=== PATIENT | female | born 1990 | race Caucasian/White ===

== ENCOUNTER 2021-03-03 17:47 | Emergency (ER) | payer OTHER ==
[~2021-03-03] VITALS: Ht 160 cm; Wt 61.2 kg
[2021-03-03 17:56] VITALS: BP 117/77
[2021-03-03] MEDS ORDERED: CIPR10DR LEFT EAR (18:14)
[2021-03-03] MEDS ORDERED: HYDROCODONE/APAP 5/325MG TABLET ONE (18:16)
[2021-03-03] MEDS ORDERED: IBUP-1957 PO (18:18)
--- NOTE | 2021-03-03 18:25 | NUR ---
Patient discharged to home in stable condition. Written and verbal after care instructions given. Patient verbalizes understanding of instruction.
[2021-03-03] MEDS ORDERED: HYDROCODONE/APAP 5/325MG TABLET PO ONE (18:30)
== END 2021-03-03 18:25 | disposition home or self-care (01) ==
LOC: ER 17:59
DX: H60.92 Unspecified otitis externa, left ear (principal); F32.9 Major depressive disorder, single episode, unspecified; Z79.899 Other long term (current) drug therapy

== ENCOUNTER 2021-11-18 09:17 | Emergency (ER) | payer OTHER ==
[~2021-11-18] VITALS: Ht 157.5 cm; Wt 62.1 kg
[~2021-11-18 09:17] MED LIST: CIPR10DR LEFT EAR; IBUP-1957 PO
--- NOTE | 2021-11-18 09:17 | NUR ---
PT [address] C/O DEPRESSION REQUESTING VOLUNTARY PSYCH ADMISSION TO [facility]. PT IS AAOX4, NOT IN RESPIRATORY DISTRESS, V/S STABLE, KEPT RESTED AND COMFORTABLE. WILL CONTINUE TO MONITOR.
--- NOTE | 2021-11-18 09:22 | NUR ---
SEEN AND EXAMINED BY .
--- NOTE | 2021-11-18 09:25 | NUR ---
URINE SPECIMEN COLLECTED AND SENT TO LAB.
--- NOTE | 2021-11-18 09:36 | NUR ---
COVID SWAB DONE AND SENT TO LAB
[2021-11-18 09:51] LABS: BASOPHILS # (AUTO) 0.1 K/uL (0.0-0.2); BASOPHILS % (AUTO) 1.1 % (0.0-2.0); EOSINOPHILS % (AUTO) 9.6 % (0.0-6.0); HEMATOCRIT 38 % (33-45); HEMOGLOBIN 12.8 g/dL (11.5-14.8); LYMPHOCYTES # (AUTO) 1.8 K/uL (0.8-4.8); LYMPHOCYTES % (AUTO) 20.4 % (20.0-44.0); MEAN CORPUSCULAR HGB CONC 33 g/dl (31.0-36.0); MEAN CORPUSCULAR VOLUME 86 fL (82-100); MONOCYTES # (AUTO) 0.6 K/uL (0.1-1.30); MONOCYTES % (AUTO) 6.3 % (2.0-12.0); NEUTROPHILS # (AUTO) 5.6 K/uL (1.8-8.9); NEUTROPHILS % (AUTO) 62.6 % (43.0-81.0); PLATELET COUNT (AUTO) 342 K/uL (150-450); RED BLOOD CELL COUNT(AUTO) 4.42 MIL/uL (4.0-5.2); WHITE BLOOD COUNT (AUTO) 8.9 K/uL (4.3-11.0)
[2021-11-18 09:56] LABS: BILIRUBIN,URINE NEGATIVE (NEGATIVE); COLOR,URINE YELLOW (YELLOW); LEUKOCYTE ESTERASE ,URINE MODERATE (NEGATIVE); NITRITE, URINE NEGATIVE (NEGATIVE); PH,URINE 7.5 (5.0-8.0); PROTEIN,URINE NEGATIVE (NEGATIVE); UGLUCOSE NEGATIVE (NEGATIVE); UROBILINOGEN,URINE 0.2 EU/dL (0.2)
[2021-11-18 10:16] LABS: BACTERIA,URINE Moderate /HPF (None Seen); RBC,URINE 0-2 /HPF (0-2)
[2021-11-18 10:17] LABS: SQUAMOUS EPITHELIAL CELL,UR Few /HPF (None Seen); TRICHOMONAS,URINE Rare /HPF (None Seen)
[2021-11-18 10:33] LABS: CALCIUM, SERUM 8.6 mg/dL (8.5-10.1); CARBON DIOXIDE 25 mmol/L (21-32); CHLORIDE 107 mmol/L (98-107); CREATININE 0.7 mg/dL (0.6-1.3); GLUCOSE 108 mg/dL (74-106); SODIUM SERUM 137 mmol/L (136-145); UREA NITROGEN, BLOOD 12 mg/dL (7-18)
[2021-11-18 10:49] LABS: ALANINE AMINOTRANSFERASE 39 U/L (12-78); ALBUMIN 3.3 g/dL (3.4-5.0); ALKALINE PHOSPHATASE 81 U/L (46-116); ASPARTATE AMINOTRANSFERASE 21 U/L (15-37); BILIRUBIN,DIRECT 0.1 mg/dL (0.0-0.2); BILIRUBIN,TOTAL 0.3 mg/dL (0.2-1.0); TOTAL PROTEIN, SERUM 6.9 g/dL (6.4-8.2)
[2021-11-18 10:54] LABS: ACETAMINOPHEN 0 ug/ml (10-30); ALCOHOL, BLOOD < 3 mg/dL (0-0)
[2021-11-18] MEDS ORDERED: SERT50TA12 PO (14:01)
[2021-11-18] MEDS ORDERED: OLAN5TAB3 PO (14:01)
[2021-11-18] MEDS ORDERED: TRAZ-182 PO (14:01)
--- NOTE | 2021-11-18 14:28 | NUR ---
PT ACCEPTED TO [facility] [place] UNDER THE CARE OF DR SANCHEZ UN[address]. NUMBER FOR REPORT [phone].
--- NOTE | 2021-11-18 14:31 | NUR ---
ATTEMPTED TO CALL [facility] FOR REPORT, NO ANSWER. WILL ATTEMPT AGAIN AT A LATER TIME.
--- NOTE | 2021-11-18 16:10 | NUR ---
[facility] CALLED FOR TRANSPORT ETA 90 MINS PER MILES.
--- NOTE | 2021-11-18 16:17 | NUR ---
REPORT GIVEN TO JAYASHREE [place] [facility] [place]
[2021-11-18 17:28] VITALS: BP 108/55
--- NOTE | 2021-11-18 17:35 | NUR ---
REPORT GIVEN TO EMT FOR PT TRANSFER TO [facility].
== END 2021-11-18 17:38 ==
LOC: ER 09:19
DX: R45.851 Suicidal ideations (principal); Z59.00 Homelessness unspecified; Z20.822 Contact with and (suspected) exposure to COVID-19; F32.A Depression, unspecified
CPT/HCPCS: 36415; 80048; 80076; 80143; 80307; 80320; 81001; 84703; 85025; 87086; 87426; 99285; C9803; G0480

== ENCOUNTER 2021-11-26 14:53 | Emergency (ER) | payer OTHER ==
[~2021-11-26] VITALS: Ht 162.6 cm; Wt 62.6 kg
[~2021-11-26 14:53] MED LIST changes: -CIPR10DR LEFT EAR; -IBUP-1957 PO; +OLAN5TAB3 PO; +SERT50TA12 PO; +TRAZ-182 PO
--- NOTE | 2021-11-26 15:12 | NUR ---
SECURITY CALLED FOR WANDING
--- NOTE | 2021-11-26 15:12 | NUR ---
SITTER 1: 1 FOR SAFETY
[2021-11-26] MEDS ORDERED: LORAZEPAM INJ 2 MG/ML VIAL ONE (15:18)
[2021-11-26] MEDS: LORAZEPAM INJ 2 MG/ML VIAL IM ONE (15:23)
--- NOTE | 2021-11-26 15:23 | NUR ---
ATIVAN 1 MG IM - VERBAL ORDER BY DR. ZENG
[2021-11-26 15:58] LABS: BASOPHILS # (AUTO) 0.1 K/uL (0.0-0.2); BASOPHILS % (AUTO) 0.8 % (0.0-2.0); EOSINOPHILS % (AUTO) 1.4 % (0.0-6.0); HEMATOCRIT 39 % (33-45); LYMPHOCYTES # (AUTO) 2.2 K/uL (0.8-4.8); LYMPHOCYTES % (AUTO) 22.9 % (20.0-44.0); MEAN CORPUSCULAR HGB CONC 34 g/dl (31.0-36.0); MEAN CORPUSCULAR VOLUME 86 fL (82-100); MONOCYTES # (AUTO) 0.8 K/uL (0.1-1.30); NEUTROPHILS # (AUTO) 6.4 K/uL (1.8-8.9); NEUTROPHILS % (AUTO) 66.9 % (43.0-81.0); PLATELET COUNT (AUTO) 393 K/uL (150-450); RED BLOOD CELL COUNT(AUTO) 4.48 MIL/uL (4.0-5.2); WHITE BLOOD COUNT (AUTO) 9.6 K/uL (4.3-11.0)
[2021-11-26 16:18] LABS: CALCIUM, SERUM 8.7 mg/dL (8.5-10.1); CARBON DIOXIDE 27 mmol/L (21-32); CHLORIDE 101 mmol/L (98-107); CREATININE 0.9 mg/dL (0.6-1.3); GLUCOSE 122 mg/dL (74-106); POTASSIUM 3.7 mmol/L (3.5-5.1); SODIUM SERUM 138 mmol/L (136-145); UREA NITROGEN, BLOOD 11 mg/dL (7-18)
[2021-11-26 16:22] LABS: ALANINE AMINOTRANSFERASE 43 U/L (12-78); ALBUMIN 3.8 g/dL (3.4-5.0); ALKALINE PHOSPHATASE 82 U/L (46-116); ASPARTATE AMINOTRANSFERASE 25 U/L (15-37); BILIRUBIN,DIRECT 0.1 mg/dL (0.0-0.2); BILIRUBIN,TOTAL 0.2 mg/dL (0.2-1.0); TOTAL PROTEIN, SERUM 7.4 g/dL (6.4-8.2)
[2021-11-26 16:24] LABS: ACETAMINOPHEN < 0 ug/ml (10-30); ALCOHOL, BLOOD < 3 mg/dL (0-0)
--- NOTE | 2021-11-26 19:54 | NUR ---
Patient discharged to home in stable condition. Written and verbal after care instructions given. Patient verbalizes understanding of instruction.
[2021-11-26 19:55] VITALS: BP 130/88
--- NOTE | 2021-11-26 19:57 | NUR ---
(SISTER) [phone] WILL COME TO DESTINATION IMAGINATION COORDINATOR PT AT 2100
== END 2021-11-26 20:07 | disposition home or self-care (01) ==
LOC: ER 15:08
DX: F41.8 Other specified anxiety disorders (principal); F32.A Depression, unspecified; Z60.2 Problems related to living alone; Z79.899 Other long term (current) drug therapy
CPT/HCPCS: 36415; 80048; 80076; 80143; 80320; 85025; 96372; 99283; J2060; G0480

== ENCOUNTER 2022-12-15 21:45 | Emergency (ER) | payer OTHER ==
[~2022-12-15] VITALS: Ht 157.5 cm; Wt 62.6 kg
--- NOTE | 2022-12-15 22:26 | NUR ---
URINE COLLECTED AND SENT TO LAB
[2022-12-15] MEDS ORDERED: ALBUTEROL FS 2.5 MG/3 ML VIAL.NEB NEB ONE (22:30)
[2022-12-15] MEDS ORDERED: predniSONE 20 MG TABLET PO ONE (22:30)
[2022-12-15] MEDS ORDERED: IPRATROPIUM NEB FS 0.5 MG/2.5 ML AMPUL.NEB NEB ONE (22:30)
[2022-12-15] MEDS ORDERED: predniSONE 20 MG TABLET ONE (22:33)
--- NOTE | 2022-12-15 22:35 | NUR ---
CALLED RT FOR BREATHING TREATMENT, NO ANSWER, LEFT MESSAGE
--- NOTE | 2022-12-15 22:50 | NUR ---
COVID ANTIGEN SWAB COLLECTED AND SENT TO LAB
--- NOTE | 2022-12-15 22:50 | NUR ---
COVID SWAB DONE AND SENT TO LAB
[2022-12-15 22:57] LABS: BILIRUBIN,URINE NEGATIVE (NEGATIVE); COLOR,URINE YELLOW (YELLOW); LEUKOCYTE ESTERASE ,URINE NEGATIVE (NEGATIVE); NITRITE, URINE NEGATIVE (NEGATIVE); PROTEIN,URINE TRACE mg/dl (NEGATIVE); UGLUCOSE NEGATIVE (NEGATIVE); UROBILINOGEN,URINE 0.2 EU/dL (0.2)
[2022-12-15] MEDS ORDERED: IPRATROPIUM NEB FS 0.5 MG/2.5 ML AMPUL.NEB ONE (23:01)
[2022-12-15] MEDS ORDERED: ALBUTEROL FS 2.5 MG/3 ML VIAL.NEB ONE (23:01)
--- NOTE | 2022-12-15 23:08 | NUR ---
PELVIC EXAM DONE BY DR KAEL HEDRICK WITH RN FEMALE COMMAND AND CONTROL OFFICER. WET MOUNT COLLECTED AND SENT TO LAB
[2022-12-15 23:15] LABS: BACTERIA,URINE 1+ /HPF (None Seen); MUCUS,URINE Few /LPF (None Seen); SQUAMOUS EPITHELIAL CELL,UR 21-50 /HPF (None Seen)
[2022-12-16] MEDS ORDERED: PRED20TA PO (00:08)
[2022-12-16] MEDS ORDERED: ALBU8.5H8 IH (00:08)
[2022-12-16 00:22] VITALS: BP 120/74
--- NOTE | 2022-12-16 00:22 | NUR ---
Patient discharged to home in stable condition. Written and verbal after care instructions given. Patient verbalizes understanding of instruction.
== END 2022-12-16 00:22 | disposition home or self-care (01) ==
LOC: ER 21:46
DX: J42 Unspecified chronic bronchitis (principal); N89.8 Other specified noninflammatory disorders of vagina; J98.01 Acute bronchospasm; F32.A Depression, unspecified; F17.210 Nicotine dependence, cigarettes, uncomplicated; Z60.2 Problems related to living alone; Z79.899 Other long term (current) drug therapy; Z20.822 Contact with and (suspected) exposure to COVID-19
CPT/HCPCS: 99284; 87426; 99406; 84703; 81001; 87210; 94640; J7512; C9803